=== PATIENT | female | born 1970 | race African-American/Black ===

== ENCOUNTER 2019-09-06 15:43 | Emergency (ER) | payer SELFPAY ==
[~2019-09-06] VITALS: Ht 172.7 cm; Wt 75.0 kg
[2019-09-06 17:05] VITALS: BP 123/74
== END 2019-09-06 17:37 | disposition home or self-care (01) ==
LOC: ER 15:43
DX: F10.129 Alcohol abuse with intoxication, unspecified (principal)
CPT/HCPCS: 99283